=== PATIENT | female | born 1975 | race Caucasian/White ===

== ENCOUNTER 2018-11-24 08:53 | Emergency (ER) | payer MEDICAID ==
[~2018-11-24] VITALS: Ht 162.6 cm; Wt 52.2 kg
--- NOTE | 2018-11-24 09:21 | NUR ---
at bedside to examine patient.
[2018-11-24] MEDS ORDERED: IPRATROPIUM BROMIDE 0.5 MG/2.5 ML NEBU NEB ONE (09:30)
[2018-11-24] MEDS ORDERED: ALBUTEROL SULFATE 2.5 MG/3 ML NEBU NEB ONE (09:30)
[2018-11-24] MEDS ORDERED: predniSONE 10 MG TABLET PO ONE (09:30)
[2018-11-24] MEDS ORDERED: predniSONE 10 MG TABLET ONE (09:36)
[2018-11-24] MEDS ORDERED: predniSONE 50 MG TABLET ONE (09:37)
--- NOTE | 2018-11-24 09:40 | NUR ---
pt. down fpr chest X-ray
[2018-11-24 09:43] LABS: BASOPHILS % (AUTO) 0.9 % (0.0-2.0); EOSINOPHILS # (AUTO) 0.1 K/uL (0.0-0.7); EOSINOPHILS % (AUTO) 2.3 % (0.0-7.0); HEMATOCRIT 39.4 % (31.2-41.9); HEMOGLOBIN 13.3 g/dL (10.9-14.3); LYMPHOCYTES # (AUTO) 1.3 K/uL (20.0-40.0); MEAN CORPUSCULAR HGB CONC 34 g/dL (32.3-35.6); MEAN CORPUSCULAR VOLUME 92.2 fL (75.5-95.3); MONOCYTES # (AUTO) 0.3 K/uL (2.0-10.0); NEUTROPHILS % (AUTO) 53.8 % (38.5-71.5); PLATELET COUNT (AUTO) 272 K/uL (179-408); RED BLOOD CELL COUNT(AUTO) 4.27 MIL/uL (3.63-4.92); WHITE BLOOD COUNT (AUTO) 3.6 K/uL (3.8-11.8)
[2018-11-24] MEDS ORDERED: IPRATROPIUM BROMIDE 0.5 MG/2.5 ML NEBU ONE (09:44)
[2018-11-24] MEDS ORDERED: ALBUTEROL SULFATE 2.5 MG/3 ML NEBU ONE (09:44)
[2018-11-24 09:50] LABS: CREATININE 0.7 mg/dL (0.6-1.3)
--- NOTE | 2018-11-24 09:50 | NUR ---
pt. back from radiology.
[2018-11-24 09:56] LABS: BILIRUBIN,DIRECT 0.1 mg/dL (0.0-0.2); BILIRUBIN,TOTAL 0.6 mg/dL (0.2-1.0); TOTAL PROTEIN, SERUM 7.1 g/dL (6.4-8.2)
[2018-11-24 10:23] LABS: *URINE HCG, QUAL NEGATIVE (NEGATIVE)
--- NOTE | 2018-11-24 10:46 | NUR ---
Patient discharged to home in stable conditon. Written and verbal after care instructions given. Patient verbalizes understanding of instructions.pt walks in steady gait. pt says feels better. no sign of sob.
--- NOTE | 2018-11-24 10:46 | NUR ---
pt decided to take the prednisone now.
[2018-11-24 10:47] VITALS: BP 102/70
== END 2018-11-24 10:46 | disposition home or self-care (01) ==
LOC: ER 08:53
DX: R53.1 Weakness (principal); J20.9 Acute bronchitis, unspecified; R53.83 Other fatigue; D72.819 Decreased white blood cell count, unspecified
CPT/HCPCS: 36415; 71046; 80048; 80076; 84443; 84703; 85025; 94640; 99284; J7512 ×2; A4663; J3590